=== PATIENT | female | born 1990 | race Caucasian/White ===

== ENCOUNTER → 2020-09-29 15:48 | Outpatient (BNVA) | payer MEDICAID, SELFPAY | PROVIDERS: Visit Provider Obstetrics & Gynecology ==

== ENCOUNTER → 2020-10-29 15:12 | Outpatient (BNVA) | payer MEDICAID, SELFPAY | PROVIDERS: Visit Provider Obstetrics & Gynecology | DX: Z30.09 Encounter for other general counseling and advice on contraception (principal) | CPT/HCPCS: 99212 ==

== ENCOUNTER 2020-11-04 07:16 | Day surgery (SDC) | payer MEDICAID, SELFPAY ==
[2020-11-04] VITALS (9 sets, daily range): BP systolic 90–115; BP diastolic 45–62; PULSE 53–80; RESP 16–20; TEMP 36.8–37; O2SAT 96–99; BMI 32.8
--- NOTE | 2020-11-04 07:25 | HO.ANESPROP2 ---
HPI - Anesthesia Eval Consult details Narrative: 30 yo female patient for Laparoscopic bilateral tubal ligation PMFSH Active Problems Active Problems: All Active Problems (Updated 11/03/20 @ 14:59 by Renita Moser MD) Unwanted fertility (Acute) Past Medical History Medical History No pertinent past medical history Family History Family history of problems with anesthesia: No Surgical History Surgical History No significant past surgical history History of Problems with Anesthesia: No Social History Social History Alcohol intake: never Patient Tobacco Use Status: Never used Tobacco Are you DNR?: No Advance Directives: No Advance Directives Information Provided: Yes Sexual orientation: Straight/Heterosexual Gender identity: female Meds Allergies Allergy/AdvReac Type Severity Reaction Status Date / Time No Known Allergies Allergy Unverified 10/28/20 15:15 [No Known Allergies*] Exam Exam Date and Time: November 04, 2020 0725 Height,Weight and Vital Signs: Vital Signs Temp Pulse Resp BP Pulse Ox 11/04/20 07:53 98.2 F 70 20 100/45 L 98 Pertinent Lab Results Pertinent Lab Results: Lab Results 11/04/20 Range/Units 07:24 Urine Test NEGATIVE (NEGATIVE) Narrative Narrative: Patient has stud on outer lower lip on the left. Asked to remove, tries but states unable to. Aware of possibility of trauma, falcon, loss of stud if accidentally dislodged. Wishes to proceed with stud in place Airway Mallampati Class: II TM Dist: >3cm Neck ROM: Full Loose/Missing/Broken Teeth: No Heart: RRR Lungs: CTAB Assessment and Plan Assessment Anesthesia Assessment: Anesthesia Plan Discussed and Chart Reviewed Final Anesthetic Review NPO: Yes ASA Class: I Final Preanesthetic Review: No Changes in Pt Med Stat, Meds/Allgs Chart Reviewed, Consent Obtained/Reviewed and Anes Risks/Benef Reviewed Patient Risk: Low Procedure Risk: Intermediate Assessment/Block/Sedation in SS: Assess/Block/Sedation-SS Anesthetic Plan Anesthetic Plan: GA Disposition: Standard PACU
[2020-11-04 07:36] LABS: UPreg QC Valid YES; Urine Pregnancy NEGATIVE (NEGATIVE)
[2020-11-04] MEDS: Lactated Ringers 1,000 ML 100 ML IVCONT (08:11)
--- NOTE | 2020-11-04 08:55 | MHC.SHP ---
Pre-Procedural Eval Section A Date of Service: 11/04/20 The patient is an INPATIENT: No Changes since office visit: No Cold of Flu in the past 2 weeks, No New Medical Problems, No Changes in Medication and No Patient answered all questions The History & Physical has been completed within 30 days and I have reviewed it.: Yes Section B Chief Complaint: Unwanted Fertility Allergies: Allergies Allergy/AdvReac Type Severity Reaction Status Date / Time No Known Allergies Allergy Unverified 10/28/20 15:15 [No Known Allergies*] Plan I have reviewed the history and physical and performed a pertinent physical examination on my patient. No changes have occurred unless specified.
--- NOTE | 2020-11-04 08:56 | P.OP_ITS ---
Operative Note Operative Note Date of Service: 11/04/20 Narrative: Pre-Procedure Diagnosis: unwanted fertility Post-Procedure Diagnosis: unwanted fertility Procedures performed: Laparoscopic bilateral salpingectomy Fabrication Engineer: none Complications: none Specimens: bilateral fallopian tubes Disposition: Pacu Ms. Gene Henderson is a 30yo who has completed her family planning and desires a permanent form of sterilization. Surgical Risks: The patient was informed of the risks and benefits of the procedure. Risks included but were not limited to bleeding, infection, injury to the vulva, vagina, or cervix, and uterine perforation. The patient was counseled on the risk of sterilization failure being about 1% on average. The patient was informed that in the event a occurs, the risk of ectopic is increased. The patient expressed understanding of the risks involved, all questions were answered, and the patient consented to the procedure. The patient had valid sterilization consent at the time of the procedure. The patient was taken to the operating room where a time out was performed to confirm correct patient and correct procedure. General anesthesia was established. The patient was then positioned on the operating table in the dorsal lithotomy position with the legs supported using stirrups. All pressure points were padded and a [place] hugger was placed to maintain control of core body temperature. The patient was then prepped and draped in the usual sterile fashion. A red rubber catheter was inserted and []mL urine obtained. A sponge stick was placed in the vagina for uterine manipulation. Attention was turned to the abdomen where a 5mm vertical infraumbilical incision was made. The 5mm trocar was attempted to be introduced under direct visualization using the laparoscopy within the sleeve of the trocar; however, the peritoneum was not penetrated. The decision was made to proceed with a Denson trocar and the skin incision was extended. The fascia was identified, tented up with andry clamps, and incised with Lerma scissors. The peritoneum was identified, tented up with tonsils, and entered sharply with metzenbaum scissors. A curved S retractor was placed through the peritoneal incision and the Denson trocar placed beneath the S retractor. After intra-abdominal placement had been confirmed, the trocar was removed leaving the sleeve in place. The camera was introduced and pneumoperitoneum was established using carbon dioxide. Inspection of the abdominal cavity showed no gross abnormalities and there was no evidence of injury to the bowel, bladder, or vasculature. Attention was turned to the pelvis. The patient was placed into Trendelenburg position. The fallopian tubes and ovaries were visualized bilaterally. There were no abnormalities noted. A small incision was made on the patient's left approximately 2cm superior to and 2cm medial to the left ASIS. A 5mm trocar was introduced through this incision under direct visualization with the laparoscope. A small incision was made on the patient's right approximately 2cm superior to and 2cm medial to the right ASIS. A 5mm trocar was introduced through this incision under direct visualization with the laparoscope. The fallopian tubes were inspected bilaterally and the fimbriated ends of the fallopian tube were visualized bilaterally. The distal end of the left tube was grasped and lifted up and being careful to avoid the ovarian vessels, salpingectomy was performed walking the Ligasure device from the distal to the medial end of the tube, where it was cauterized and cut from the uterus at the cornua and removed through the trocar. The identical procedure was then performed on the right. The tubes were sent to pathology for analysis. The pneumoperitoneum was then evacuated. The laparoscope was removed and the trocar sleeves were removed. The umbilical fascial incision was closed with two interrupted 0-Vicryl sutures. The sponge stick was removed from the vagina. The skin incisions were closed each with a single interrupted 3-0 Vicryl suture and Dermabond was applied. Good hemostasis was confirmed. The patient was transferred to the recovery room in stable condition. All needle, sponge, and instrument counts were noted to be correct x2 at the end of the procedure.
[2020-11-04] MEDS: ondansetron HCL 4 MG/2 ML VIAL IVPUSH (10:39)
[2020-11-04] MEDS: fentaNYL citrate/PF 100 MCG/2 ML VIAL 25 MCG IVPUSH (10:40)
[2020-11-04] MEDS: oxyCODONE HCl Immed Release 5 MG TABLET PO (10:40)
[2020-11-04] MEDS: Acetaminophen 325 MG TABLET 650 MG PO (10:40)
== END 2020-11-04 12:13 | disposition home or self-care (01) ==
LOC: HO.SSS 07:16
PROVIDERS: Visit Provider Obstetrics & Gynecology
PROC: (CPT 58670; principal; 2020-11-04 09:00)
DX: Z30.2 Encounter for sterilization (principal)
CPT/HCPCS: 58661; 81025; 88302; J1100; J1885; J2250; J2405; J3010

== ENCOUNTER → 2020-11-15 14:23 | Outpatient (BNVA) | payer MEDICAID, SELFPAY | PROVIDERS: Visit Provider Obstetrics & Gynecology ==

== ENCOUNTER 2022-06-02 12:39 | Outpatient (REF) | payer MEDICAID, SELFPAY ==
--- NOTE | ~2022-06-02 | XR_ITS ---
EXAMINATION: X-RAY CERVICAL SPINE X-RAY THORACIC SPINE X-RAY LUMBAR SPINE CLINICAL INFORMATION: Pain. COMPARISON: No similar priors. TECHNIQUE: 5 views of the cervical spine including bilateral oblique views. 3 views of the thoracic spine. 4 views of the lumbar spine, including bilateral oblique views. FINDINGS: Cervical spine: No acute fractures or subluxation. Disc heights are maintained. Posterior elements are within normal limits. No prevertebral soft tissue thickening. The lung apices are clear. Thoracic spine: No acute fracture or malalignment. No significant spondylosis. The included portions of the cardiomediastinal silhouette and lungs are within normal limits. Lumbar spine: No acute fracture or malalignment. Disc heights are maintained. Posterior elements are within normal limits. SI joints are symmetric. No significant paraspinal soft tissue abnormality. XR/XR cervical spine 5V IMPRESSION: 1. No acute fractures or subluxation. 2. No significant spondylosis. 3. If pain persists, consider further evaluation with an MR of the area of concern.
--- NOTE | ~2022-06-02 | XR_ITS ---
EXAMINATION: X-RAY CERVICAL SPINE X-RAY THORACIC SPINE X-RAY LUMBAR SPINE CLINICAL INFORMATION: Pain. COMPARISON: No similar priors. TECHNIQUE: 5 views of the cervical spine including bilateral oblique views. 3 views of the thoracic spine. 4 views of the lumbar spine, including bilateral oblique views. FINDINGS: Cervical spine: No acute fractures or subluxation. Disc heights are maintained. Posterior elements are within normal limits. No prevertebral soft tissue thickening. The lung apices are clear. Thoracic spine: No acute fracture or malalignment. No significant spondylosis. The included portions of the cardiomediastinal silhouette and lungs are within normal limits. Lumbar spine: No acute fracture or malalignment. Disc heights are maintained. Posterior elements are within normal limits. SI joints are symmetric. No significant paraspinal soft tissue abnormality. XR/XR lumbar spine 4V min IMPRESSION: 1. No acute fractures or subluxation. 2. No significant spondylosis. 3. If pain persists, consider further evaluation with an MR of the area of concern.
--- NOTE | ~2022-06-02 | XR_ITS ---
EXAMINATION: X-RAY CERVICAL SPINE X-RAY THORACIC SPINE X-RAY LUMBAR SPINE CLINICAL INFORMATION: Pain. COMPARISON: No similar priors. TECHNIQUE: 5 views of the cervical spine including bilateral oblique views. 3 views of the thoracic spine. 4 views of the lumbar spine, including bilateral oblique views. FINDINGS: Cervical spine: No acute fractures or subluxation. Disc heights are maintained. Posterior elements are within normal limits. No prevertebral soft tissue thickening. The lung apices are clear. Thoracic spine: No acute fracture or malalignment. No significant spondylosis. The included portions of the cardiomediastinal silhouette and lungs are within normal limits. Lumbar spine: No acute fracture or malalignment. Disc heights are maintained. Posterior elements are within normal limits. SI joints are symmetric. No significant paraspinal soft tissue abnormality. XR/XR thoracic spine 3V IMPRESSION: 1. No acute fractures or subluxation. 2. No significant spondylosis. 3. If pain persists, consider further evaluation with an MR of the area of concern.
== END 2022-06-02 12:40 | disposition home or self-care (01) ==
LOC: HO.XRAY 12:39
PROVIDERS: Visit Provider Internal Medicine
DX: M62.838 Other muscle spasm (principal); M62.830 Muscle spasm of back; V89.2XXA Person injured in unspecified motor-vehicle accident, traffic, initial encounter
CPT/HCPCS: 72050; 72072; 72110

== ENCOUNTER 2022-11-01 14:47 | Outpatient (REF) | payer MEDICAID, SELFPAY ==
--- NOTE | ~2022-11-01 | MM_ITS ---
EXAMINATION: MM DIAGNOSTIC DIGITAL BREAST TOMOSYNTHESIS, BILATERAL US DIAGNOSTIC ULTRASOUND BREAST, LEFT CLINICAL INFORMATION: 32-year-old with recent intermittent lateral left breast pain and fullness. No prior breast imaging. No known family history breast cancer. The lifetime risk of breast cancer based on the Tyrer-Cuzick Model is 8%. COMPARISON: None (current study represents initial baseline exam). TECHNIQUE: Digital breast tomosynthesis is performed in both the craniocaudal and mediolateral oblique views along with computer-aided detection (CAD). Synthesized 2D images are generated from the tomosynthesis. Ultrasound left breast is targeted to the outer quadrants using grayscale imaging and color Doppler without and with harmonics. FINDINGS: There are scattered areas of fibroglandular density (ACR BI-RADS breast composition Category b). There are no significant masses, abnormal calcifications, or other abnormalities. No architectural abnormality. No skin thickening or coarsening of the Jong's ligaments. The axilla and skin contours are unremarkable. Ultrasound left breast demonstrates no cystic or solid mass, architectural abnormality, or focal duct ectasia. No skin thickening or edema tracking in soft tissue planes. No hyperemia on color Doppler. Results are discussed with the patient at time of visit, using an head char filter tank tender. MM/MM tomosynthesis diagnostic BI IMPRESSION: -No mammographic evidence of malignancy or inflammatory changes. -Unremarkable left breast ultrasound. ASSESSMENT: BI-RADS 1: Negative RECOMMENDATION: 1. Patient's left mastodynia should be managed based on the clinical impression. 2. Otherwise, routine annual screening mammography, beginning age 40, or earlier as clinical risk factors warrant. This patient's information was entered into a reminder system with a target due date for their next mammogram.
== END 2022-11-01 14:48 | disposition home or self-care (01) ==
LOC: HO.MAMMO 14:47
PROVIDERS: PCP Internal Medicine; Visit Provider Registered Nurse
DX: N64.4 Mastodynia (principal)
CPT/HCPCS: 76642; 77062; 77066